=== PATIENT | female | born 1995 | race Caucasian/White ===

== ENCOUNTER 2024-01-21 05:30 | Inpatient (IN) | payer OTHER ==
[2024-01-21] MEDS: AMPICILLIN - 2 GM in SODIUM CHLORIDE 100 ML IVPB ONE ×2 (06:05→06:15)
[2024-01-21] MEDS: ELECTROLYTE-148 SOLN 1,000 ML IV SCH (06:10)
[2024-01-21] MEDS ORDERED: OXYTOCIN 20 UNITS in 0.9% NS 20 UNIT/1,000 ML INFUS.BAG IV ONE ×2 (06:15→09:56)
[2024-01-21 06:30] LABS: BASO % 0.9 % (0-2.0); EOS % 0.2 % (0-4.5); HEMATOCRIT 38.9 % (32.4-45.2); HEMOGLOBIN 13.6 GM/dL (10.7-15.3); LYMPH % 10.9 % (8-40); MCH 32.6 pg (25.7-33.7); MEAN CELL VOLUME 93.2 fl (80-96); MEAN PLT VOLUME 8.3 fl (7.5-11.1); MONO % 3.5 % (3.8-10.2); NEUT % 84.5 % (42.8-82.8); PLATELET COUNT 214 10^3/uL (134-434); RBC 4.18 M/mm3 (3.60-5.2); RDW 13.5 % (11.6-15.6); WHITE BLOOD COUNT 13.6 K/mm3 (4.0-10.0)
[2024-01-21 06:43] LABS: INR 0.97 (0.83-1.09); PROTHROMBIN TIME (PATIENT) 11.2 SEC (9.7-13.0)
[2024-01-21 06:46] LABS: ACTIVATED PTT 25.5 SECONDS (25.2-36.5)
[2024-01-21 06:53] VITALS: BMI 26.2
[2024-01-21 07:01] LABS: CALCIUM 8.3 mg/dL (8.5-10.1)
[2024-01-21 07:02] LABS: BLOOD UREA NITROGEN 16.2 mg/dL (7-18)
[2024-01-21] MEDS ORDERED: LIDOCAINE HCL 1% PRESERVATIVE FREE - 30ML VIAL ONE (07:04)
[2024-01-21 07:05] LABS: CREATININE 0.6 mg/dL (0.55-1.3)
[2024-01-21] MEDS: OXYTOCIN 20 UNITS in 0.9% NS 20 UNIT/1,000 ML INFUS.BAG IV SCH (07:13)
[2024-01-21] MEDS ORDERED: ACETAMINOPHEN INJECTION 100 ML IVPB ONE (07:17)
[2024-01-21] MEDS: ACETAMINOPHEN 1000 MG/100 ML BAG IVPB ONE (07:19)
[2024-01-21] MEDS ORDERED: oxyCODONE HCL 5 MG TABLET PO PRN (08:06)
[2024-01-21] MEDS ORDERED: BENZOCAINE 20% 57 GM BOTTLE TP PRN (08:06)
[2024-01-21] MEDS ORDERED: WITCH HAZEL 50% (TUCKS) 40 PAD/JAR PAD TP PRN (08:06)
[2024-01-21] MEDS ORDERED: ACETAMINOPHEN 325 MG TABLET (FP) PO PRN (08:06)
[2024-01-21] MEDS ORDERED: METHYLERGONOVINE MALEATE 0.2 MG/1 ML AMP IM PRN (08:06)
[2024-01-21] MEDS ORDERED: BISACODYL 10 MG SUPP.RECT RC PRN (08:06)
[2024-01-21] MEDS ORDERED: BENZOCAINE 28 GM HEMORRHOIDAL OINTMENT TP PRN (08:06)
[2024-01-21] MEDS ORDERED: IBUPROFEN 600 MG TABLET (FP) PO ONE (09:06)
[2024-01-21] MEDS: IBUPROFEN 600 MG TABLET (FP) PO PRN (09:10)
[2024-01-21] MEDS: AMPICILLIN - 1 GM in SODIUM CHLORIDE 100 ML IVPB SCH (09:38)
[2024-01-21 12:38] LABS: HIV INTERPRETATION NEGATIVE (NEGATIVE)
[2024-01-21 22:22] VITALS: RESP 18
[2024-01-22 06:37] LABS: BASO % 0.6 % (0-2.0); EOS % 0.6 % (0-4.5); HEMATOCRIT 29.6 % (32.4-45.2); HEMOGLOBIN 10.3 GM/dL (10.7-15.3); LYMPH % 18.8 % (8-40); MCH 33.3 pg (25.7-33.7); MCHC 34.8 g/dl (32.0-36.0); MEAN CELL VOLUME 95.6 fl (80-96); MEAN PLT VOLUME 8.1 fl (7.5-11.1); MONO % 5.1 % (3.8-10.2); NEUT % 74.9 % (42.8-82.8); PLATELET COUNT 196 10^3/uL (134-434); RBC 3.09 M/mm3 (3.60-5.2); RDW 13.6 % (11.6-15.6); WHITE BLOOD COUNT 12.4 K/mm3 (4.0-10.0)
[2024-01-22] MEDS ORDERED: SENNOSIDES/DOCUSATE COMBO (SENNA PLUS) TABLET (UD) PO PRN (22:00)
[2024-01-23 09:40] VITALS: BP 95/57; PULSE 77; TEMP 98.5
== END 2024-01-23 13:48 | disposition home or self-care (01) | DRG 560 ==
LOC: JDEL 05:30 → JLDR 05:59 → J3W 10:10
PROVIDERS: ADMIT Specialist; ATTEND Specialist
PROC: 10E0XZZ Delivery of Products of Conception, External Approach (ICD-10-PCS; principal; 2024-01-21)
PROC: 0W8NXZZ Division of Female Perineum, External Approach (ICD-10-PCS; 2024-01-21)
DX: O80 Encounter for full-term uncomplicated delivery (principal); Z3A.39 39 weeks gestation of pregnancy; Z37.0 Single live birth
CPT/HCPCS: 36415; 80048; 82962; 85025; 85610; 85730; 86780; 86850; 86900; 86901; 87389; J0131

== ENCOUNTER 2024-04-16 16:30 | Emergency (ER) | payer OTHER ==
[2024-04-16 16:36] VITALS: BP 106/71; PULSE 73; RESP 20; TEMP 98.1; BMI 26.2
[2024-04-16] MEDS ORDERED: FAMOTIDINE 20 MG TABLET ONE (16:46)
[2024-04-16] MEDS ORDERED: diphenhydrAMINE HCL 12.5 MG/5 ML UNIT-DOSE CUPS ONE (16:47)
[2024-04-16] MEDS: diphenhydrAMINE HCL 25 MG CAPSULE (FP) PO ONE (16:51)
[2024-04-16] MEDS: diphenhydrAMINE HCL 12.5 MG/5 ML UNIT-DOSE CUPS PO ONE (16:51)
[2024-04-16] MEDS: FAMOTIDINE 20 MG TABLET PO ONE (16:51)
== END 2024-04-16 18:06 | disposition home or self-care (01) ==
LOC: JERFT 16:30
DX: T78.40XA Allergy, unspecified, initial encounter (principal)
CPT/HCPCS: 99283-25